=== PATIENT | male | born 1935 | race Caucasian/White ===

== ENCOUNTER → 2017-07-26 | Outpatient (CLI) | payer OTHER | END | disposition home or self-care (01) | LOC: RAH 16:13 | PROVIDERS: ATTEND Internal Medicine | DX: I10 Essential (primary) hypertension (principal) | CPT/HCPCS: 71046 ==

== ENCOUNTER 2017-07-27 14:55 | Emergency (ER) | payer OTHER | END 2017-07-27 16:42 | disposition home or self-care (01) | LOC: EDH 14:55 | DX: R60.0 Localized edema (principal); I10 Essential (primary) hypertension | CPT/HCPCS: 93971 ==

== ENCOUNTER → 2018-06-09 | Outpatient (CLI) | payer OTHER | END | disposition home or self-care (01) | LOC: OIH 14:14 | PROVIDERS: ATTEND Internal Medicine | DX: M16.11 Unilateral primary osteoarthritis, right hip (principal); I70.0 Atherosclerosis of aorta; I10 Essential (primary) hypertension; M25.751 Osteophyte, right hip | CPT/HCPCS: 71046; 73502 ==

== ENCOUNTER → 2019-07-02 | Outpatient (CLI) | payer OTHER | END | disposition home or self-care (01) | LOC: OIH 13:43 | PROVIDERS: ATTEND Internal Medicine | DX: I10 Essential (primary) hypertension (principal); I70.0 Atherosclerosis of aorta | CPT/HCPCS: 71046 ==

== ENCOUNTER 2019-09-23 19:06 | Observation (INO) | payer OTHER ==
[~2019-09-23] VITALS: Ht 177.8 cm; Wt 106.7 kg
[2019-09-23 19:41] LABS: BASOPHILS % (AUTO) 0.7 % (0.0-5.0); EOSINOPHILS % (AUTO) 9.8 % (0.0-8.0); HEMATOCRIT 38.1 % (42-54); LYMPHOCYTES % (AUTO) 33.4 % (21.0-51.0); MEAN CORPUSCULAR HEMOGLOBIN 29.9 pg (27.0-33.0); MEAN CORPUSCULAR HGB CONC 34.1 g/dL (32.0-36.0); MEAN CORPUSCULAR VOLUME 87.6 fL (79-99); MONOCYTES % (AUTO) 8.1 % (3.0-13.0); NEUTROPHILS % (AUTO) 47.7 % (40.0-77.0); PLATELET COUNT (AUTO) 167 K/uL (130-400); RED BLOOD CELL COUNT(AUTO) 4.35 MIL/uL (4.50-6.20); RED CELL DISTRIBUTION WIDTH 13.8 % (11.0-15.5); WHITE BLOOD COUNT (AUTO) 7.4 K/uL (4.8-10.8)
[2019-09-23 19:54] LABS: INR 0.98 (0.85-1.15); PARTIAL THROMBOPLASTIN TIME 25.7 SEC (26.3-35.5); PROTHROMBIN TIME 10.6 SEC (9.6-11.6)
[2019-09-23 19:56] LABS: ALBUMIN 3.8 g/dL (3.5-5.0); BILIRUBIN,TOTAL 0.4 mg/dL (0.2-1.0); TOTAL PROTEIN, SERUM 7.2 g/dL (6.0-8.3)
[2019-09-23 20:07] LABS: B-TYPE NATRIURETIC PEPTIDE 55 pg/mL (0-100)
[2019-09-23 20:18] LABS: APPEARANCE,URINE Clear (CLEAR); BILIRUBIN,URINE Negative (NEGATIVE); COLOR,URINE Yellow (YELLOW); GLUCOSE, URINE (UA) Negative (NEGATIVE); KETONES,URINE Negative (NEGATIVE); LEUKOCYTE ESTERASE ,URINE Negative (NEGATIVE); NITRATE,URINE Negative (NEGATIVE); OCCULT BLOOD,URINE Negative (NEGATIVE); PH,URINE 5.5 (5.0-8.0); PROTEIN,URINE Trace mg/dL (NEGATIVE); UROBILINOGEN,URINE 0.2 mg/dL (0.2-1.0)
[2019-09-23 20:34] LABS: RBC,URINE 0-1 /HPF (0-1); WBC,URINE 0-1 /HPF (0-1)
[2019-09-23 20:35] LABS: BACTERIA,URINE None Seen /HPF (None Seen); MUCUS,URINE Few LPF (None Seen); SQUAMOUS EPITHELIAL CELL,UR 0-2 /HPF (0-2)
[2019-09-23] MEDS ORDERED: NITROGLYCERIN 1GM/1 INCH PACKET TD ONE (22:45)
[2019-09-24 00:41] VITALS: BP 211/95
[2019-09-24 01:37] VITALS: BP 178/79
[2019-09-24 04:54] VITALS: BP 166/78
[2019-09-24 06:13] LABS: HEMATOCRIT 38.6 % (42-54); MEAN CORPUSCULAR HEMOGLOBIN 28.9 pg (27.0-33.0); MEAN CORPUSCULAR HGB CONC 32.9 g/dL (32.0-36.0); MEAN CORPUSCULAR VOLUME 87.9 fL (79-99); RED BLOOD CELL COUNT(AUTO) 4.39 MIL/uL (4.50-6.20); RED CELL DISTRIBUTION WIDTH 13.9 % (11.0-15.5); WHITE BLOOD COUNT (AUTO) 6.9 K/uL (4.8-10.8)
[2019-09-24] MEDS ORDERED: SODIUM CHLORIDE 0.9% 10 ML VIAL IVP PRN (06:30)
[2019-09-24 06:34] LABS: ALBUMIN 3.5 g/dL (3.5-5.0); BILIRUBIN,TOTAL 0.4 mg/dL (0.2-1.0); POTASSIUM 4.1 mmol/L (3.5-5.1); TOTAL PROTEIN, SERUM 6.9 g/dL (6.0-8.3)
[2019-09-24 07:30] VITALS: BP 165/70
[2019-09-24 07:45] LABS: THYROID STIMULATING HORMONE 4.73 uIU/mL (0.36-3.74)
--- NOTE | 2019-09-24 08:00 | NUR ---
SITTING UP IN BED AND TELLING ME HE IS GOING HOME THIS AM AFTER BLOOD IS DRAWN, AND THERE IS AN ORDER FROM DR. REYES TO DC
[2019-09-24] MEDS ORDERED: ENOXAPARIN SODIUM 120 MG/0.8ML SQ SCH (09:00)
--- NOTE | 2019-09-24 10:30 | NUR ---
DISCHARGE NOW USING TEACH BACK, LABS WERE DRAWN AND RESULTS IN CHART, WILL PREPARE PT. FOR DC.LOVENOX GIVEN , SALINE LOCK REMOVED AND SPOUSE CALLED , COPY OF AM LABS GIVEN. HAS AN APPT. ALREADY SCHEDULED WITH DR. REYES NEXT WEEK. WILL CONTINUE HOME MEDS. WHEELED DOWNSTAIRS O ER AREA, SPOUSE WAITING.
[2019-09-24 11:00] VITALS: BP 165/77
== END 2019-09-24 13:45 | disposition home or self-care (01) ==
LOC: EDH 19:06 → EDHIP 20:46 → 3AH 22:52
PROVIDERS: ADMIT Internal Medicine; ATTEND Internal Medicine
DX: R06.02 Shortness of breath (principal); M79.604 Pain in right leg; R07.89 Other chest pain; I10 Essential (primary) hypertension; E78.5 Hyperlipidemia, unspecified; M19.90 Unspecified osteoarthritis, unspecified site; I25.10 Atherosclerotic heart disease of native coronary artery without angina pectoris
CPT/HCPCS: 36415 ×2; 71045; 78582; 80053 ×2; 81001; 82550; 82728; 83615; 83880; 84153; 84443; 84484; 85025; 85027; 85378; 85610; 85730; 93005; 93971; 96372; 99285; A9540; A9558; G0378 ×5; J1650

== ENCOUNTER → 2020-01-27 | Outpatient (CLI) | payer OTHER | END | disposition home or self-care (01) | LOC: OIH 14:31 | PROVIDERS: ATTEND Internal Medicine | DX: M17.0 Bilateral primary osteoarthritis of knee (principal) | CPT/HCPCS: 73560 ==

== ENCOUNTER 2020-05-18 14:09 | Inpatient (IN) | payer MEDICARE ==
[~2020-05-18] VITALS: Ht 180.3 cm; Wt 108.4 kg
[2020-05-18 14:42] LABS: BASOPHILS % (AUTO) 0.3 % (0.0-5.0); HEMATOCRIT 35.6 % (42-54); LYMPHOCYTES % (AUTO) 10.2 % (21.0-51.0); MEAN CORPUSCULAR HEMOGLOBIN 29.3 pg (27.0-33.0); MEAN CORPUSCULAR HGB CONC 34.6 g/dL (32.0-36.0); MEAN CORPUSCULAR VOLUME 84.8 fL (79-99); MONOCYTES % (AUTO) 5.8 % (3.0-13.0); NEUTROPHILS % (AUTO) 81.4 % (40.0-77.0); PLATELET COUNT (AUTO) 253 K/uL (130-400); RED CELL DISTRIBUTION WIDTH 13.6 % (11.0-15.5); WHITE BLOOD COUNT (AUTO) 11.1 K/uL (4.8-10.8)
[2020-05-18 15:00] LABS: ALBUMIN 3.1 g/dL (3.5-5.0); BILIRUBIN,TOTAL 0.4 mg/dL (0.2-1.0); CREATININE 3.7 mg/dL (0.5-1.5); POTASSIUM 4.4 mmol/L (3.5-5.1); TOTAL PROTEIN, SERUM 6.9 g/dL (6.0-8.3)
[2020-05-18 15:10] LABS: INR 1.12 (0.85-1.15); PROTHROMBIN TIME 11.9 SEC (9.6-11.6)
[2020-05-18 16:25] LABS: PARTIAL THROMBOPLASTIN TIME 26.4 SEC (26.3-35.5)
[2020-05-18] MEDS ORDERED: ENOXAPARIN SODIUM 100 MG/1 ML SQ ONE (16:41)
[2020-05-18] MEDS ORDERED: MORPHINE 2 MG SYG IVP PRN (17:00)
[2020-05-19 00:30] VITALS: BP 173/88
[2020-05-19] MEDS ORDERED: APIX5TAB PO (00:41)
[2020-05-19 04:20] VITALS: BP 169/95
[2020-05-19 05:34] LABS: BASOPHILS % (AUTO) 0.3 % (0.0-5.0); EOSINOPHILS % (AUTO) 1.3 % (0.0-8.0); HEMATOCRIT 36.8 % (42-54); LYMPHOCYTES % (AUTO) 20.2 % (21.0-51.0); MEAN CORPUSCULAR HEMOGLOBIN 28.9 pg (27.0-33.0); MONOCYTES % (AUTO) 11.2 % (3.0-13.0); NEUTROPHILS % (AUTO) 64.4 % (40.0-77.0); PLATELET COUNT (AUTO) 236 K/uL (130-400); RED BLOOD CELL COUNT(AUTO) 4.33 MIL/uL (4.50-6.20); RED CELL DISTRIBUTION WIDTH 13.4 % (11.0-15.5); WHITE BLOOD COUNT (AUTO) 9.9 K/uL (4.8-10.8)
[2020-05-19 06:06] LABS: BILIRUBIN,TOTAL 0.4 mg/dL (0.2-1.0); CREATININE 3.8 mg/dL (0.5-1.5); POTASSIUM 4.5 mmol/L (3.5-5.1); TOTAL PROTEIN, SERUM 7.1 g/dL (6.0-8.3)
[2020-05-19 08:00] VITALS: BP 189/94
[2020-05-19] MEDS: ENOXAPARIN SODIUM 100 MG/1 ML SQ SCH (09:43)
[2020-05-19 11:52] VITALS: BP 156/92
[2020-05-19] MEDS ORDERED: PRED20TA3 PO (17:11)
[2020-05-19] MEDS ORDERED: FAMO40TA7 PO (17:15)
[2020-05-19 20:00] VITALS: BP 149/72
[2020-05-20] VITALS (7 sets, daily range): BP systolic 152–182; BP diastolic 73–94
[2020-05-20] MEDS: 0.9%NACL 1000ML 1,000 ML IV SCH ×2 (06:45→21:51)
[2020-05-20] MEDS: FAMOTIDINE 20MG TAB PO SCH (09:42)
[2020-05-20] MEDS: ENOXAPARIN SODIUM 100 MG/1 ML SQ SCH (09:42)
[2020-05-20] MEDS: PREDNISONE 20 MG TABLET PO SCH (09:43)
[2020-05-20 13:54] LABS: APPEARANCE,URINE Clear (CLEAR); BILIRUBIN,URINE Negative (NEGATIVE); COLOR,URINE Yellow (YELLOW); GLUCOSE, URINE (UA) 250 mg/dL (NEGATIVE); KETONES,URINE Negative (NEGATIVE); LEUKOCYTE ESTERASE ,URINE Negative (NEGATIVE); NITRATE,URINE Negative (NEGATIVE); OCCULT BLOOD,URINE Negative (NEGATIVE); PROTEIN,URINE Trace mg/dL (NEGATIVE); UROBILINOGEN,URINE 0.2 mg/dL (0.2-1.0)
[2020-05-20 14:08] LABS: BACTERIA,URINE Rare /HPF (None Seen); RBC,URINE 0-1 /HPF (0-1); SQUAMOUS EPITHELIAL CELL,UR Rare /HPF (0-2); WBC,URINE 0-1 /HPF (0-1)
[2020-05-21 00:10] VITALS: BP 157/84
[2020-05-21 03:48] VITALS: BP 116/80
[2020-05-21 05:37] LABS: BASOPHILS % (AUTO) 0.2 % (0.0-5.0); EOSINOPHILS % (AUTO) 1.1 % (0.0-8.0); MEAN CORPUSCULAR HEMOGLOBIN 28.8 pg (27.0-33.0); MEAN CORPUSCULAR HGB CONC 32.9 g/dL (32.0-36.0); MEAN CORPUSCULAR VOLUME 87.4 fL (79-99); MONOCYTES % (AUTO) 9.3 % (3.0-13.0); NEUTROPHILS % (AUTO) 67.6 % (40.0-77.0); PLATELET COUNT (AUTO) 219 K/uL (130-400); RED BLOOD CELL COUNT(AUTO) 3.89 MIL/uL (4.50-6.20); RED CELL DISTRIBUTION WIDTH 13.9 % (11.0-15.5); WHITE BLOOD COUNT (AUTO) 10.7 K/uL (4.8-10.8)
[2020-05-21 06:02] LABS: MAGNESIUM 2.1 mg/dL (1.80-2.40); POTASSIUM 4.6 mmol/L (3.5-5.1); URIC ACID 3.5 mg/dL (2.6-7.2)
[2020-05-21 07:45] VITALS: BP 140/70
[2020-05-21 08:13] LABS: HEPATITIS Bs ANTIGEN SCREEN P Negative (Negative)
[2020-05-21] MEDS: PREDNISONE 20 MG TABLET PO SCH (09:00)
[2020-05-21] MEDS: FAMOTIDINE 20MG TAB PO SCH (09:00)
[2020-05-21] MEDS: 0.9%NACL 1000ML 1,000 ML IV SCH ×2 (09:25→23:42)
[2020-05-21] MEDS: Vitamin B Complex/Vit C/Folic Acid PO SCH (09:46)
[2020-05-21] MEDS: ENOXAPARIN SODIUM 100 MG/1 ML SQ SCH (09:46)
[2020-05-21 11:30] VITALS: BP_SYST 140; BP_SYST 161; BP_DIAS 70; BP_DIAS 92
[2020-05-21 16:20] VITALS: BP 153/72
[2020-05-21] MEDS ORDERED: LACTULOSE 20 GM/30 ML UDCUP PO PRN (16:45)
[2020-05-21 20:00] VITALS: BP 170/92
[2020-05-22] VITALS: BP 170/76
[2020-05-22 03:56] VITALS: BP 173/82
[2020-05-22 05:26] LABS: BASOPHILS % (AUTO) 0.3 % (0.0-5.0); EOSINOPHILS % (AUTO) 1.6 % (0.0-8.0); HEMATOCRIT 32.4 % (42-54); MEAN CORPUSCULAR HEMOGLOBIN 29.1 pg (27.0-33.0); MEAN CORPUSCULAR HGB CONC 33.3 g/dL (32.0-36.0); MEAN CORPUSCULAR VOLUME 87.3 fL (79-99); MONOCYTES % (AUTO) 9.3 % (3.0-13.0); NEUTROPHILS % (AUTO) 68.3 % (40.0-77.0); PLATELET COUNT (AUTO) 190 K/uL (130-400); RED BLOOD CELL COUNT(AUTO) 3.71 MIL/uL (4.50-6.20); RED CELL DISTRIBUTION WIDTH 13.9 % (11.0-15.5); WHITE BLOOD COUNT (AUTO) 10.9 K/uL (4.8-10.8)
[2020-05-22 06:02] LABS: CREATININE 2.6 mg/dL (0.5-1.5); MAGNESIUM 2.1 mg/dL (1.80-2.40); POTASSIUM 4.4 mmol/L (3.5-5.1); THYROID STIMULATING HORMONE 6.41 uIU/mL (0.36-3.74)
[2020-05-22] MEDS ORDERED: APIX2.5T PO (06:34)
[2020-05-22 07:45] VITALS: BP 186/90
[2020-05-22] MEDS ORDERED: APIXABAN 2.5 MG TABLET PO SCH (09:00)
[2020-05-22] MEDS: FAMOTIDINE 20MG TAB PO SCH (09:00)
[2020-05-22] MEDS: PREDNISONE 20 MG TABLET PO SCH (09:00)
[2020-05-22] MEDS: Vitamin B Complex/Vit C/Folic Acid PO SCH (09:51)
[2020-05-22 16:00] VITALS: BP 153/72
== END 2020-05-22 16:15 | disposition home or self-care (01) | DRG 299 ==
LOC: EDH 14:09 → EDHIP 15:21 → OBSVTOIN 15:21 → 3CH 05-19 00:03
PROVIDERS: ADMIT Internal Medicine; ATTEND Internal Medicine
DX: I82.403 Acute embolism and thrombosis of unspecified deep veins of lower extremity, bilateral (principal); N18.6 End stage renal disease; N17.9 Acute kidney failure, unspecified; I12.0 Hypertensive chronic kidney disease with stage 5 chronic kidney disease or end stage renal disease; I10 Essential (primary) hypertension; D64.9 Anemia, unspecified; I25.10 Atherosclerotic heart disease of native coronary artery without angina pectoris; K59.00 Constipation, unspecified; N20.0 Calculus of kidney; Z79.01 Long term (current) use of anticoagulants; Z86.16 Personal history of COVID-19
CPT/HCPCS: 36415; 71046; 76770; 78582; 80048; 80053; 81001; 82550; 83735; 84100; 84156; 84166; 84443; 84484; 84550; 85025; 85610; 85730; 86160; 86255; 86325; 86334; 87088; 87340; 87520; 93005; 93971; A9540; A9558; G0378; J1650

== ENCOUNTER → 2020-05-18 | Outpatient (CLI) | payer MEDICARE ==
[~2020-05-18] MED LIST: APIX5TAB PO; FAMO40TA7 PO; PRED20TA3 PO
== END | disposition home or self-care (01) ==
LOC: RAH 12:53
PROVIDERS: ATTEND Internal Medicine
DX: I82.491 Acute embolism and thrombosis of other specified deep vein of right lower extremity (principal); R06.02 Shortness of breath
CPT/HCPCS: 93971

== ENCOUNTER → 2020-07-26 | Outpatient (CLI) | payer MEDICARE ==
[~2020-07-26] MED LIST changes: -APIX5TAB PO
== END | disposition home or self-care (01) ==
LOC: SHCH 15:13
PROVIDERS: ATTEND Internal Medicine Cardiovascular Disease
DX: R06.09 Other forms of dyspnea (principal); R07.9 Chest pain, unspecified
CPT/HCPCS: 93306; 93356

== ENCOUNTER 2020-12-24 20:07 | Emergency (ER) | payer MEDICARE, OTHER ==
[~2020-12-24] VITALS: Ht 167.6 cm; Wt 81.6 kg
[2020-12-24 20:44] LABS: BASOPHILS % (AUTO) 0.5 % (0.0-5.0); HEMATOCRIT 30.5 % (42-54); LYMPHOCYTES % (AUTO) 28.1 % (21.0-51.0); MEAN CORPUSCULAR HEMOGLOBIN 28.7 pg (27.0-33.0); MEAN CORPUSCULAR HGB CONC 31.8 g/dL (32.0-36.0); MEAN CORPUSCULAR VOLUME 90.2 fL (79-99); MONOCYTES % (AUTO) 8.6 % (3.0-13.0); NEUTROPHILS % (AUTO) 58.4 % (40.0-77.0); PLATELET COUNT (AUTO) 183 K/uL (130-400); RED BLOOD CELL COUNT(AUTO) 3.38 MIL/uL (4.50-6.20); RED CELL DISTRIBUTION WIDTH 14.6 % (11.0-15.5); WHITE BLOOD COUNT (AUTO) 8.5 K/uL (4.8-10.8)
[2020-12-24 21:15] LABS: CREATININE 3.2 mg/dL (0.5-1.5); POTASSIUM 4.8 mmol/L (3.5-5.1)
[2020-12-24 21:26] VITALS: BP 161/84
[2020-12-24 21:37] LABS: APPEARANCE,URINE Cloudy (CLEAR); BILIRUBIN,URINE Negative (NEGATIVE); COLOR,URINE Orange (YELLOW); GLUCOSE, URINE (UA) Negative (NEGATIVE); KETONES,URINE Negative (NEGATIVE); LEUKOCYTE ESTERASE ,URINE Moderate (NEGATIVE); NITRATE,URINE Negative (NEGATIVE); OCCULT BLOOD,URINE Large (NEGATIVE); PH,URINE 5.5 (5.0-8.0); PROTEIN,URINE POS 2+ mg/dL (NEGATIVE); UROBILINOGEN,URINE 0.2 mg/dL (0.2-1.0)
[2020-12-24 21:43] LABS: BACTERIA,URINE Few /HPF (None Seen); RBC,URINE TNTC /HPF (0-1); SQUAMOUS EPITHELIAL CELL,UR Rare /HPF (0-2)
[2020-12-24] MEDS ORDERED: TAMSULOSIN HCL 0.4 MG CAP.ER.24H ONE (22:00)
[2020-12-24] MEDS ORDERED: TAMSULOSIN HCL 0.4 MG CAP.ER.24H PO SCH (22:00)
[2020-12-24] MEDS ORDERED: TAMS-1 PO (22:09)
[2020-12-24] MEDS ORDERED: CEFI400C PO (22:09)
== END 2020-12-24 22:20 | disposition home or self-care (01) ==
LOC: EDH 20:07
DX: N30.90 Cystitis, unspecified without hematuria (principal); R33.8 Other retention of urine; N28.9 Disorder of kidney and ureter, unspecified; I10 Essential (primary) hypertension; Z79.52 Long term (current) use of systemic steroids; Z98.890 Other specified postprocedural states; Z86.16 Personal history of COVID-19; Z79.899 Other long term (current) drug therapy
CPT/HCPCS: 36415; 80048; 81001; 83605; 85025; 87088